=== PATIENT | male | born 1965 | race Caucasian/White ===

== ENCOUNTER → 2017-01-18 | Outpatient (CLI) | payer BC ==
[~2017-01-18] MED LIST: ASCO-296 PO; ASPI-611 PO; CHOL400C2 PO; IOHEXOL 180 MG/ML 20ml INJECTION ONE; LIDOCAINE 1% (10mg/ml) 5ml VIAL ONE; LOSA1TAB56 PO; LOVA40TA70 PO; METF-206 PO; MULT-447 PO; MethylPREDNISolone ACETATE 40mg/1ml ONE
--- NOTE | 2017-01-18 11:52 | DI ---
Indication:ITS.REASON: M54.17 LUMBAR BACK PAIN W/ RADICULOPATHY, LUMBOSACRAL REGION Procedure:EPIDURAL INJ.SPINE W FLUO CATH LUMBAR EPIDURAL INJECTION: The patient has low back and radicular pain. The patient has had previous lumbar epidural injections approximately 20 years ago. The details of the procedure, including the benefits, risks, and alternatives were explained to the patient. All of their questions were answered. They stated that they understood and wished to proceed. Informed consent was then obtained. A pre-procedural timeout was performed to confirm the correct patient and procedure. Utilizing aseptic technique, local lidocaine anesthetic, and fluoroscopic guidance throughout, a 22-gauge spinal needle was directed into the lumbar epidural space via an interlaminar approach at the L5-S1 level. Contrast was injected to assure proper positioning of the needle tip. A fluoroscopic image was then taken and archived. Subsequently, 120 mg Depo-Medrol was injected into the epidural space. The patient tolerated the procedure well. IMPRESSION: Successful lumbar epidural steroid injection. Fluoroscopy dose: 43.72 mGy (Cumulative air kerma) Shai Tirado RPA/TOMA performed this under my personal supervision. .
== END ==
LOC: IMA 10:44
PROVIDERS: ATTEND Nurse Practitioner
DX: M54.17 Radiculopathy, lumbosacral region (principal); M54.16 Radiculopathy, lumbar region
CPT/HCPCS: 62323; J1030; Q9965